=== PATIENT | female | born 1985 | race Caucasian/White ===

== ENCOUNTER 2021-10-09 11:50 | Inpatient (IN) | payer OTHER ==
[~2021-10-09] VITALS: Ht 154.9 cm; Wt 83.6 kg
[~2021-10-09 11:50] MED LIST: MACROBID 100 M100 M1 PO; PYRIDIUM200 MG PO; ZOFRAN ODT4 MG PO
[2021-10-09 12:22] LABS: RED BLOOD COUNT 4.7 M/UL (4.00-5.10); WHITE BLOOD COUNT 22.2 K/UL (4.5-11.0)
--- NOTE | 2021-10-09 16:20 | NUR ---
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 Notified Dr. Martinez. Per MD, lab must be otained within 6 hours of the last lactic acid. Also informed prvider of the patients request for pain medication. Provider stated he will assess her shortly. Provider on floor and in to see patient at 1410. Provider stated he will place orders.
--- NOTE | 2021-10-09 18:40 | NUR ---
Patient with temperature of 102.8. Notified Dr. Martinez. New orders to administer Tylenol 650mg every 4 hours PRN for temp greater than 100 degrees. If the temp doesn't come down with Tylenol, administer Ibuprofen 400mg every 6 hours. Will continue to monitor patient.
[2021-10-10 06:12] LABS: HEMOGLOBIN 12.2 gm/dl (12.3-15.3); RED BLOOD COUNT 4.25 M/UL (4.00-5.10); WHITE BLOOD COUNT 17.9 K/UL (4.5-11.0)
[2021-10-10 08:11] LABS: CANDIDA ALBICANS Not Detected (Negative); CANDIDA KRUSEI Not Detected (Negative); CANDIDA TROPICALIS Not Detected (Negative); HAEMOPHILUS INFLUENZAE Not Detected (Negative); KLEBSIELLA OXYTOCA Not Detected (Negative); KLEBSIELLA PNEUMONIAE Not Detected (Negative); KPC-CARBAPENEM-RESISTANCE GENE Not Detected (Negative); PROTEUS Not Detected (Negative); PSEUDOMONAS AERUGINOSA Not Detected (Negative); SERRATIA MARCESANS Not Detected (Negative); STAPHYLOCOCCUS Not Detected (Negative); STAPHYLOCOCCUS AUREUS Not Detected (Negative); STREP AGALACTIAE (GROUP B) Not Detected (Negative); STREP PYOGENES (GROUP A) Not Detected (Negative); STREPTOCOCCUS Not Detected (Negative); vanA/B (VANCOMYCIN RESIST GENE Not Detected (Negative)
[2021-10-10 09:23] LABS: ESCHERICHIA COLI DETECTED (Negative)
--- NOTE | 2021-10-10 13:05 | NUR ---
PATIENT REFUSED TO HAVE BLOOD DRAWN FOR REPEAT BLOOD CULTURES. PATIENT STATES SHE IS NOT GETTING STUCK ANYMORE. THIS FRUIT CUTTER NOTIFIED THE ORDERING PROVIDER. NO NEW ORDERS OBTAINED.
[2021-10-11 07:31] LABS: HEMOGLOBIN 11.6 gm/dl (12.3-15.3); RED BLOOD COUNT 4.17 M/UL (4.00-5.10); WHITE BLOOD COUNT 17.5 K/UL (4.5-11.0)
[2021-10-12 08:08] LABS: HEMOGLOBIN 12.8 gm/dl (12.3-15.3); RED BLOOD COUNT 4.49 M/UL (4.00-5.10)
[2021-10-12 08:09] LABS: BUN/CREATININE RATIO 12 (0-10)
[2021-10-12 08:10] LABS: WHITE BLOOD COUNT 12.6 K/UL (4.5-11.0)
[2021-10-13 06:38] LABS: HEMOGLOBIN 11.2 gm/dl (12.3-15.3); WHITE BLOOD COUNT 11.4 K/UL (4.5-11.0)
[2021-10-13 06:53] LABS: RED BLOOD COUNT 3.91 M/UL (4.00-5.10)
[2021-10-13 07:20] LABS: BUN/CREATININE RATIO 5 (0-10)
[2021-10-13] MEDS ORDERED: CEFDINIR300 MG PO (10:42)
== END 2021-10-13 13:05 | disposition home or self-care (01) | DRG 872 ==
LOC: ER1 11:50 → CDU 13:28 → M/S 13:28
PROVIDERS: Internal Medicine; Physician Assistant; Physician Assistant Medical; ADMIT Internal Medicine Infectious Disease
DX: A41.51 Sepsis due to Escherichia coli [E. coli] (principal); E87.1 Hypo-osmolality and hyponatremia; N10 Acute pyelonephritis; K75.9 Inflammatory liver disease, unspecified; F17.200 Nicotine dependence, unspecified, uncomplicated; R73.9 Hyperglycemia, unspecified; Z90.49 Acquired absence of other specified parts of digestive tract; Z90.89 Acquired absence of other organs; Z83.3 Family history of diabetes mellitus; Z82.49 Family history of ischemic heart disease and other diseases of the circulatory system
CPT/HCPCS: 36415; 71045; 80048; 80053; 81001; 83036; 83605; 83735; 84703; 85025; 85027; 87040; 87077; 87086; 87150; 87186; 96374; 96375; 99285; J0696; J1335; J2270; J2405; J2550; U0002